=== PATIENT | female | born 1985 | race Caucasian/White ===

== ENCOUNTER 2017-10-26 13:51 | Emergency (ER) | payer OTHER ==
[~2017-10-26] VITALS: Ht 177.8 cm; Wt 72.5 kg
[~2017-10-26 13:51] MED LIST: PANT20 PO; TRAM50 PO
[2017-10-26 13:52] VITALS: BP 185/84; PULSE 102; RESP 18; TEMP 98.9; O2SAT 99
[2017-10-26 14:59] LABS: BASOPHIL % 0.3 % (0.0-2.0); EOSINOPHIL # 0.2 TH/MM3 (0-0.4); EOSINOPHIL % 3.3 % (0.0-4.0); HEMOGLOBIN 14.8 GM/DL (11.6-15.3); LYMPH % 22.6 % (9.0-44.0); LYMPHOCYTE # 1.7 TH/MM3 (1.0-4.8); MEAN CELL VOLUME 94.2 FL (80.0-100.0); MEAN CORPUSCULAR HEMOGLOBIN 32.5 PG (27.0-34.0); MEAN CORPUSCULAR HGB CONC 34.5 % (32.0-36.0); MEAN PLATELET VOLUME 6.8 FL (7.0-11.0); MONO % 6.8 % (0.0-8.0); MONOCYTE # 0.5 TH/MM3 (0-0.9); PLATELET COUNT 195 TH/MM3 (150-450); RED BLOOD COUNT 4.56 MIL/MM3 (4.00-5.30); RED CELL DISTRIBUTION WIDTH 13.2 % (11.6-17.2); WHITE BLOOD COUNT 7.5 TH/MM3 (4.0-11.0)
[2017-10-26 15:09] LABS: BACTERIA, URINE RARE /hpf; BILIRUBIN, URINE NEG (NEG); BLOOD, URINE NEG (NEG); GLUCOSE,URINE NEG (NEG); KETONE, URINE NEG (NEG); NITRITE,URINE NEG (NEG); SQUAMOUS EPITHELIAL CELL URINE 1 /hpf (0-5); URINE COLOR LIGHT-YELLOW (YELLW/STRAW); URINE LEUKOCYTE ESTERASE NEG (NEG)
[2017-10-26 15:17] LABS: ALBUMIN 3.8 GM/DL (3.4-5.0); AST (GOT) 19 U/L (15-37); BICARBONATE 25.2 MEQ/L (21.0-32.0); BLOOD UREA NITROGEN 10 MG/DL (7-18); CALCIUM 8.9 MG/DL (8.5-10.1); CHLORIDE 106 MEQ/L (98-107); CREATININE 0.73 MG/DL (0.50-1.00); GLOMERULAR FILTRATION RATE 91 ML/MIN (>89); GLUCOSE,RANDOM 85 MG/DL (74-106); SODIUM (NA) 138 MEQ/L (136-145)
[2017-10-26 15:21] LABS: ALKALINE PHOSPHATASE 57 U/L (45-117); ALT (GPT) 67 U/L (10-53); TOTAL BILIRUBIN ADULT 0.4 MG/DL (0.2-1.0); TOTAL PROTEIN 7.6 GM/DL (6.4-8.2)
[2017-10-26] MEDS ORDERED: SODIUM CHLOR 0.9% 1000 ML INJ 1,000 ML IV SCH (16:13)
--- NOTE | 2017-10-26 16:13 | PD ---
HPI Chief Complaint: Abdominal Pain Time Seen by Provider: 15:47 Travel History International Travel<30 days: No Contact w/Intl Traveler<30days: No Traveled to known affect area: No History of Present Illness HPI 32-year-old female presents to the emergency department with complaint of worsening abdominal pain and diarrhea for the past week. She has history of celiac disease, stomach ulcers, pancreatitis and is currently being worked up for Crohn's disease by her floor space allocator, Dr. Garza. Reports greater than 20 episodes of diarrhea in the past 24 hours and reports "coffee ground "stool. Abdominal pain is generalized and was worse last night. Reports fevers with MAXIMUM TEMPERATURE of 101.82 days ago. Had low-grade fever of 99.2 this morning. Last menstrual period 10/11-10/15. Takes oral contraception. Per patient she had a CT scan at the beginning of August, which showed diffuse bowel wall thickening consistent with colitis. She had abdominal KUB on August 25, at [facility] [place], and it showed Mildly dilated abnormal segment of bowel in the left midabdomen with possible thumbprinting which could indicate submucosal wall thickening. Patient had an outpatient colonoscopy with biopsy since seen on August 25 and said that the doctor couldn't see far enough. Biopsies were obtained and have been negative, per the patient. She has a capsule camera study schedule on separate with her floor space allocator. Rates pain 10/10. Reports the extremity is putting a fist in her abdomen and squishing and squeezing her organs. Has been smoking marijuana, taking Bentyl and Zofran for symptom management. Symptoms are worse with stress and exacerbation of diarrhea. No known relieving factors. History of cholecystectomy. Denies other significant past medical history. Primary care provider is BRENDA Hamlin. Gastroenterology is Dr. Garza. [facility] Past Medical History Arthritis: Yes Diminished Hearing: No GERD: Yes (COLITIS,IBS,CELIAC DX) Pancreatitis: Yes ?: Not : 8 Para: 3 Miscarriage: 5 Dilation and Curettage (D&C): Yes (2) Past Surgical History Cholecystectomy: Yes Social History Alcohol Use: No (occ) Tobacco Use: Yes (pack a day ) Substance Use: Yes (MARIJUANA DAILY) Allergies-Medications (Allergen,Severity, Reaction): Coded Allergies: acetaminophen (Verified Allergy, Severe, HIVES, 08/25/17) barley (Verified Allergy, Severe, HIVES, 08/25/17) codeine (Verified Allergy, Severe, HIVES, 08/25/17) hydrocodone (Verified Allergy, Severe, HIVES, 08/25/17) metoclopramide (Verified Allergy, Severe, HIVES, 08/25/17) wheat (Verified Allergy, Severe, HIVES, 08/25/17) Reported Meds & Prescriptions Reported Meds & Active Scripts Active Percocet (Oxycodone-Acetaminophen) 5-325 mg Tab 1 Tab PO Q4H PRN Protonix (Pantoprazole Sodium) 20 Mg Tab 20 Mg PO DAILY Ultram (Tramadol HCl) 50 Mg Tab 50 Mg PO Q6H PRN Review of Systems Except as stated in HPI: all other systems reviewed are Neg Physical Exam Narrative GENERAL: Well-nourished, well-developed female patient, in no acute distress; afebrile, nontoxic-appearing SKIN: Warm and dry. HEAD: Atraumatic. Normocephalic. EYES: Pupils equal and round. No scleral icterus. No injection or drainage. ENT: Mucosa pink and moist. Airway patent. NECK: Trachea midline. CARDIOVASCULAR: Regular rate and rhythm. No murmur appreciated. RESPIRATORY: No accessory muscle use. Clear to auscultation. Breath sounds equal bilaterally. GASTROINTESTINAL: Abdomen soft, tenderness to all quadrants, nondistended. Hepatic and splenic margins not palpable. Bowel sounds are active 4 quadrants. No guarding. Nonrigid. RECTAL EXAM: Exam done in the presence of a nurse. No masses or tenderness; no stool in rectum. Hemaprompt negative. No visualized external hemorrhoids. MUSCULOSKELETAL: No obvious deformities. No clubbing. No cyanosis. No edema. NEUROLOGICAL: Awake and alert. Oriented 3. No obvious cranial nerve deficits. Motor grossly within normal limits. Normal speech. PSYCHIATRIC: Appropriate mood and affect; insight and judgment normal. Data Data Last Documented VS Vital Signs Date Time Temp Pulse Resp B/P (MAP) Pulse Ox O2 Delivery O2 Flow Rate FiO2 10/26/17 13:52 98.9 102 18 185/84 (117) 99 Room Air Orders Orders Complete Blood Count With Diff (10/26/17 13:58) Comprehensive Metabolic Panel (10/26/17 13:58) Lipase (10/26/17 13:58) Urinalysis - C+S If Indicated (10/26/17 13:58) Ed Urine Pregnancytest Poc (10/26/17 13:58) Iv Access Insert/Monitor (10/26/17 16:13) Morphine Inj (Morphine Inj) (10/26/17 16:15) Ondansetron Inj (Zofran Inj) (10/26/17 16:15) Sodium Chlor 0.9% 1000 Ml Inj (Ns 1000 M (10/26/17 16:13) Sodium Chloride 0.9% Flush (Ns Flush) (10/26/17 16:15) Sodium Chlor 0.9% 1000 Ml Inj (Ns 1000 M (10/26/17 17:00) Ed Discharge Order (10/26/17 17:40) Labs Laboratory Tests Test 10/26/17 14:19 White Blood Count 7.5 TH/MM3 Red Blood Count 4.56 MIL/MM3 Hemoglobin 14.8 GM/DL Hematocrit 43.0 % Mean Corpuscular Volume 94.2 FL Mean Corpuscular Hemoglobin 32.5 PG Mean Corpuscular Hemoglobin Concent 34.5 % Red Cell Distribution Width 13.2 % Platelet Count 195 TH/MM3 Mean Platelet Volume 6.8 FL Neutrophils (%) (Auto) 67.0 % Lymphocytes (%) (Auto) 22.6 % Monocytes (%) (Auto) 6.8 % Eosinophils (%) (Auto) 3.3 % Basophils (%) (Auto) 0.3 % Neutrophils # (Auto) 5.0 TH/MM3 Lymphocytes # (Auto) 1.7 TH/MM3 Monocytes # (Auto) 0.5 TH/MM3 Eosinophils # (Auto) 0.2 TH/MM3 Basophils # (Auto) 0.0 TH/MM3 CBC Comment DIFF FINAL Differential Comment Urine Color LIGHT-YELLOW Urine Turbidity CLEAR Urine pH 5.0 Urine Specific [place] 1.001 Urine Protein NEG mg/dL Urine Glucose (UA) NEG mg/dL Urine Ketones NEG mg/dL Urine Occult Blood NEG Urine Nitrite NEG Urine Bilirubin NEG Urine Urobilinogen LESS THAN 2.0 MG/DL Urine Leukocyte Esterase NEG Urine Squamous Epithelial Cells 1 /hpf Urine Bacteria RARE /hpf Microscopic Urinalysis Comment CULT NOT INDICATED Blood Urea Nitrogen 10 MG/DL Creatinine 0.73 MG/DL Random Glucose 85 MG/DL Total Protein 7.6 GM/DL Albumin 3.8 GM/DL Calcium Level 8.9 MG/DL Alkaline Phosphatase 57 U/L Aspartate Amino Transf (AST/SGOT) 19 U/L Alanine Aminotransferase (ALT/SGPT) 67 U/L Total Bilirubin 0.4 MG/DL Sodium Level 138 MEQ/L Potassium Level 3.9 MEQ/L Chloride Level 106 MEQ/L Carbon Dioxide Level 25.2 MEQ/L Anion Gap 7 MEQ/L Estimat Glomerular Filtration Rate 91 ML/MIN Lipase 163 U/L MDM Medical Decision Making Medical Screen Exam Complete: Yes Emergency Medical Condition: Yes Medical Record Reviewed: Yes Differential Diagnosis Colitis, IBS, chron's, celiac, gastritis Narrative Course 32-year-old female, with history of celiac disease, stomach ulcers, pancreatitis , and currently being worked up for Crohn's disease presents with continued diarrhea and abdominal pain. Patient has CT scan of the abdomen 2 months ago which showed diffuse bowel wall thickening consistent with colitis, per the patient. She had KUB Aug 25, 2018 here at [facility] which concluded: Mildly dilated abnormal segment of bowel in the left midabdomen with possible thumbprinting which could indicate submucosal wall thickening. Patient had a colonoscopy with biopsy performed by her floor space allocator, Dr. Garza and he could not see far enough into the colon and scheduled a capsule camera study on October 09, 2017. Per the patient biopsies are "so far" negative. I discussed the patient with Dr. Hickman, my attending physician and he agrees to treat the patient for pain and for the patient to continue to follow up outpatient. Discussed plan of care with the patient and she agrees and feels comfortable with plan. Patient has follow-up with floor space allocator on November 09. Morphine, Zofran, normal saline bolus 2 administered in the ER. Percocet prescribed for home. Instructed patient to follow up with gastroenterology and she verbalized understanding and agreement. Instructed patient to follow up with primary care provider. Patient verbalizes understanding and agreement with treatment plan. Patient is medically cleared and stable for discharge. Discussed reasons to return to the emergency department. Patient agrees with treatment plan. The patients vital signs are stable and the patient is stable for outpatient follow-up and treatment. Patient discharged home, stable and in no acute distress. Diagnosis Primary Impression: Abdominal pain Qualified Codes: R10.9 - Unspecified abdominal pain Additional Impression: Diarrhea Qualified Codes: R19.7 - Diarrhea, unspecified Referrals: [facility] Primary Care Physician Patient Instructions: Celiac Disease (ED), Colitis (ED), Crohn Disease (ED), Diet for Stomach Ulcers and Gastritis (ED), General Instructions Additional Instructions: Avoid aggravating foods or fluids Follow-up with primary care provider Follow-up with gastroenterology Return to emergency department immediately for worsening symptoms Med/Other Pt SpecificInfo: Prescription(s) given Scripts Oxycodone-Acetaminophen (Percocet) 5-325 mg Tab 1 TAB PO Q4H Y for PAIN, #12 TAB 0 Refills Prov: Annia Lopez 10/26/17 Disposition: 01 DISCHARGE HOME Condition: Stable Annia Lopez Oct 26, 2017 16:13
[2017-10-26] MEDS ORDERED: SODIUM CHLORIDE 0.9% FLUSH 10 ML FLUSH IV FLUSH PRN (16:15)
[2017-10-26] MEDS ORDERED: MORPHINE SULFATE 4 MG/ML INJ IV PUSH ONE (16:15)
[2017-10-26] MEDS ORDERED: ONDANSETRON HCL 4 MG/2 ML VIAL IVP ONE (16:15)
[2017-10-26] MEDS ORDERED: SODIUM CHLOR 0.9% 1000 ML INJ 1,000 ML IV ONE (17:00)
[2017-10-26] MEDS ORDERED: PERC5TAB12 PO (17:37)
== END 2017-10-26 18:00 | disposition home or self-care (01) ==
LOC: NEPD 13:51
DX: R10.9 Unspecified abdominal pain (principal); R19.7 Diarrhea, unspecified; F17.210 Nicotine dependence, cigarettes, uncomplicated; M19.90 Unspecified osteoarthritis, unspecified site
CPT/HCPCS: 80053; 81001; 83690; 85025; 96361; 96374; 96375; 99284; J2270; J2405; J7030